=== PATIENT | male | born 1935 | race Caucasian/White ===

== ENCOUNTER 2018-06-20 21:56 | Emergency (ER) | payer OTHER, MEDICARE ==
[2018-06-20] MEDS ORDERED: DEXAMETHASONE SOD PHOS INJ 10 MG/1 ML VIAL IV ONE (22:52)
[2018-06-20] MEDS ORDERED: NORMAL SALINE 500 ML IV ONE (22:52)
--- NOTE | 2018-06-20 22:56 | ER Document Report ---
ED General - General Chief Complaint: Breathing Difficulty Stated Complaint: TROUBLE BREATING Time Seen by Provider: 06/20/18 22:45 Notes: Patient is a 82-year-old male who presents with complaint of sensation of throat swelling. Him and his are from [place]. He has had multiple radiation treatment on the left side of his neck due to a skin cancer. Says is been several months since last radiation treatment. He says he chronically has intermittent sensation of throat swelling and always try to clear his throat and hacking. Denies any recent fevers. He said tonight the swelling flexors get worse and he was having some trouble breathing. He therefore came to the ER. Now the symptoms are starting to improve. No fevers. No vomiting. No bloody mucus or bloody secretions. No other complaints at this time. - Related Data Allergies/Adverse Reactions: clindamycin Allergy (Verified 06/20/18 22:20) Past Medical History - Social History Smoking Status: Unknown if Ever Smoked Frequency of alcohol use: None Drug Abuse: None Family History: Reviewed & Not Pertinent Patient has suicidal ideation: No Patient has homicidal ideation: No - Past Medical History Cardiac Medical History: Reports: Hx Atrial Fibrillation, Hx Hypertension Renal/ Medical History: Denies: Hx Peritoneal Dialysis Musculoskeletal Medical History: Reports Hx Arthritis Review of Systems - Review of Systems Notes: My Normal Review Basic REVIEW OF SYSTEMS: CONSTITUTIONAL : Denies fever, chills, or sweats. Denies recent illness. EENT: Sensation of throat swelling RESPIRATORY: Tyler short of breath when throat was tight. GASTROINTESTINAL: Denies abdominal pain. Denies nausea, vomiting, or diarrhea. MUSCULOSKELETAL: Denies neck or back pain or joint pain or swelling. SKIN: Denies rash or skin lesions. NEUROLOGICAL: Denies altered mental status or loss of consciousness. Denies headache. Denies weakness or paralysis or loss of use of either side. Denies problems with gait or speech. Denies sensory or motor loss. ALL OTHER SYSTEMS REVIEWED AND NEGATIVE. Physical Exam - Vital signs Vitals: Temp Pulse Resp BP Pulse Ox 98.6 F 70 18 153/102 H 97 06/20/18 21:59 06/20/18 21:59 06/20/18 21:59 06/20/18 21:59 06/20/18 21:59 - Notes Notes: General Appearance: Well nourished, alert, cooperative, no acute distress, no obvious discomfort. Appearing. Vitals: reviewed, See vital signs table. Head: no swelling or tenderness to the head Eyes: PERRL, EOMI, Conjuctiva clear Mouth: No decreasd moisture Throat: No tonsillar inflammation, No airway obstruction, No lymphadenopathy Neck: Supple, no neck tenderness, obvious neck swelling. No stridor. No difficulty breathing on exam. Lungs: No wheezing, No rales, No rhonci, No accessory muscle use, good air exchange bilaterally. Heart: Normal rate, Regular rythm, No murmur, no rub Skin: warm, dry, appropriate color, no rash Neuro: speech clear, oriented x 3, normal affect, responds appropriately to questions. Course - Re-evaluation Re-evalutation: 06/21/18 07:[address] scan was normal. He does not have any throat swelling on exam. His symptoms resolved shortly after he got to the ER. They gave him a dose of Decadron. He looks well. At this time I feel he safe to be discharged home. He never had any stridor or difficulty breathing while here in the ER. He is handling his secretions without difficulty. Urgent return to ER immediately if he has recurrent sensation of throat swelling, fevers, difficulty breathing, difficulty swallowing, or if he feels unwell. Patient agrees with plan and will be discharged home. Dictation of this chart was performed using voice recognition software; therefore, there may be some unintended grammatical errors. - Vital Signs Vital signs: Temp Pulse Resp BP Pulse Ox 98.6 F 70 20 142/92 H 96 06/21/18 03:01 06/20/18 21:59 06/21/18 03:01 06/21/18 03:01 06/21/18 03:01 - Laboratory Result Diagrams: 06/20/18 22:57 06/20/18 22:57 Laboratory results interpreted by me: 06/20/18 06/20/18 06/20/18 22:34 22:57 22:57 RBC 4.27 L RDW 15.3 H Lymphocytes % 10.9 L BUN 22 H Ur Leukocyte Esterase TRACE H Discharge - Discharge Clinical Impression: Throat pain Condition: Good Disposition: HOME, SELF-CARE Additional Instructions: Your CT scan showed not complications in regards to your throat. Your blood work did not show any concerning findings. Please eat soft foods over the next 48 hours. please have a low threshold to return to the ER if you have difficulty breathing, fevers, or feel as if your throat is swelling.
[2018-06-20 23:10] LABS: ABSOLUTE EOSINOPHILS # (AUTO) 0.1 10^3/uL (0.0-0.6); ABSOLUTE LYMPHOCYTES (AUTO) 0.6 10^3/uL (0.5-4.7); ABSOLUTE MONOCYTES (AUTO) 0.5 10^3/uL (0.1-1.4); BASOPHILS % (AUTO) 0.7 % (0-2); HEMATOCRIT 41.3 % (37.9-51.0); HEMOGLOBIN 14.2 g/dL (13.5-17.0); LYMPHOCYTES % (AUTO) 10.9 % (13-45); MEAN CORPUSCULAR HEMOGLOBIN 33.2 pg (27.0-33.4); MEAN CORPUSCULAR HGB CONC 34.3 g/dL (32.0-36.0); MEAN CORPUSCULAR VOLUME 97 fl (80-97); MONOCYTES % (AUTO) 10.4 % (3-13); PLATELET COUNT 163 10^3/uL (150-450); RED BLOOD COUNT 4.27 10^6/uL (4.35-5.55); RED CELL DISTRIBUTION WIDTH 15.3 % (11.5-14.0); TOTAL CELLS COUNTED % (AUTO) 100 %; WHITE BLOOD COUNT 5.2 10^3/uL (4.0-10.5)
[2018-06-20 23:28] LABS: ANION GAP 9 (5-19); BLOOD UREA NITROGEN 22 mg/dL (7-20); CALCIUM 9.8 mg/dL (8.4-10.2); CARBON DIOXIDE 28 mmol/L (22-30); CHLORIDE 101 mmol/L (98-107); GLUCOSE 100 mg/dL (75-110); POTASSIUM 4.6 mmol/L (3.6-5.0); SODIUM 137.9 mmol/L (137-145)
--- NOTE | 2018-06-21 01:11 | RADIOLOGY REPORT (SQ) ---
EXAM DESCRIPTION: CT NECK CHEST WITH IV CONTRAST COMPLETED DATE/TME: 06/20/2018 22:52 CLINICAL HISTORY: 82 years Male, sensation of throat swelling Comparison: None. Technique: IV contrast. Coronal and sagittal reformat. This exam was performed according to our departmental dose-optimization program, which includes automated exposure control, adjustment of the mA and/or kV according to patient size and/or use of iterative reconstruction technique. [facility]: Dose Right [facility]: CareDose [facility]: Dose Right [facility]: Teradose 4D [facility]: Ryzing LIMITATIONS: None Findings: Orbits, paranasal sinuses, and skull base: Normal. Nasopharynx: Normal. Suprahyoid neck: Normal oropharynx, oral cavity, parapharyngeal space, and retropharyngeal space. Infrahyoid neck: Normal larynx, hypopharynx, and supraglottis. Thyroid: Normal. Thoracic inlet: Normal lung apices and brachial plexus. Lymph nodes: Normal. No lymphadenopathy. Vascular structures: 3.9 cm diameter of the pulmonary outflow tract suggestive of pulmonary arterial hypertension. Other findings: Anterior C3-C5 hardware fusion. Bone demineralization. Moderate disc desiccation of the mid and lower cervical spine. Moderate irregular disc bulge/osteophyte complex at C3-C4 with mild/moderate spinal canal stenosis and moderate bilateral C4 foraminal stenoses. Impression: 1. Dilated pulmonary outflow track suggestive of pulmonary arterial hypertension. 2. No acute CT findings of the neck.
[2018-06-21 02:06] LABS: APPEARANCE,URINE CLEAR; BILIRUBIN,URINE NEGATIVE (NEGATIVE); COLOR,URINE COLORLESS; GLUCOSE, URINE NEGATIVE (NEGATIVE); KETONES,URINE NEGATIVE (NEGATIVE); LEUKOCYTE ESTERASE,URINE TRACE (NEGATIVE); NITRITE,URINE NEGATIVE (NEGATIVE); PROTEIN,URINE NEGATIVE (NEGATIVE); URINE SPECIFIC GRAVITY 1.006; UROBILINOGEN,URINE NEGATIVE mg/dL (<2.0)
[2018-06-21 03:17] VITALS: BP 142/92
== END 2018-06-21 03:17 | disposition home or self-care (01) ==
LOC: ER 21:56
DX: R07.0 Pain in throat (principal); R06.00 Dyspnea, unspecified; I48.91 Unspecified atrial fibrillation; I10 Essential (primary) hypertension; Z88.3 Allergy status to other anti-infective agents; Z85.828 Personal history of other malignant neoplasm of skin
CPT/HCPCS: 99283; 96361; 96374; 36415; 85025; 80048; 81001; 70491; J7040; J1100

== ENCOUNTER 2018-10-03 20:18 | Inpatient (IN) | payer MEDICARE, OTHER ==
[2018-10-03 20:52] LABS: VENOUS BLOOD BASE EXCESS -0.3 mmol/L; VENOUS BLOOD HCO3 22.8 mmol/L (20-32); VENOUS BLOOD PCO2 32.9 mmHg (35-63); VENOUS BLOOD PH 7.46 (7.30-7.42)
[2018-10-03 20:56] LABS: HEMATOCRIT 42.9 % (37.9-51.0); HEMOGLOBIN 14.3 g/dL (13.5-17.0); MEAN CORPUSCULAR HEMOGLOBIN 31.9 pg (27.0-33.4); MEAN CORPUSCULAR HGB CONC 33.4 g/dL (32.0-36.0); MEAN CORPUSCULAR VOLUME 96 fl (80-97); PLATELET COUNT 153 10^3/uL (150-450); RED BLOOD COUNT 4.49 10^6/uL (4.35-5.55); RED CELL DISTRIBUTION WIDTH 14.1 % (11.5-14.0); WHITE BLOOD COUNT 10.1 10^3/uL (4.0-10.5)
[2018-10-03 20:58] LABS: INTERNATIONAL RATION (INR) 2.74; PROTHROMBIN TIME 29.6 SEC (11.4-15.4)
[2018-10-03 21:11] LABS: ALANINE AMINOTRANSFERASE 32 U/L (21-72); ALBUMIN 4.5 g/dL (3.5-5.0); ALKALINE PHOSPHATASE 73 U/L (38-126); ANION GAP 11 (5-19); ASPARTATE AMINO TRANSFERASE 33 U/L (17-59); BILIRUBIN,DIRECT 0.3 mg/dL (0.0-0.4); BILIRUBIN,TOTAL 0.9 mg/dL (0.2-1.3); BLOOD UREA NITROGEN 24 mg/dL (7-20); CALCIUM 9.6 mg/dL (8.4-10.2); CARBON DIOXIDE 25 mmol/L (22-30); CHLORIDE 101 mmol/L (98-107); GLUCOSE 127 mg/dL (75-110); POTASSIUM 4.8 mmol/L (3.6-5.0); SODIUM 136.7 mmol/L (137-145); TOTAL PROTEIN 7.3 g/dL (6.3-8.2)
--- NOTE | 2018-10-03 21:17 | ER Document Report ---
ED Fever - General Chief Complaint: Fever Stated Complaint: FEVER Time Seen by Provider: 10/03/18 21:04 Notes: Patient is an 82-year-old male that comes to the emergency department for chief complaint of fever and weakness. Symptoms started this evening, he came by EMS, was found to have an initial temperature of 102.7 orally. Family states they noticed him shaking with chills, then he started getting weak and could not stand up. They also saw some blood in his urine when he urinated his evening. He did not get confused. He has not vomited, he denies shortness of breath, he denies any pain including abdominal pain, flank pain, headache, chest pain. Past medical history includes hypertension, hyperlipidemia, BPH, A. fib on Coumadin, hypothyroidism. He is visiting from [place]. TRAVEL OUTSIDE OF THE [place] IN LAST 30 DAYS: No - Related Data Allergies/Adverse Reactions: clindamycin Allergy (Verified 06/20/18 22:20) Past Medical History - General Information source: Patient, Relative - Social History Smoking Status: Never Smoker Frequency of alcohol use: None Drug Abuse: None Lives with: Family Family History: Reviewed & Not Pertinent - Past Medical History Cardiac Medical History: Reports: Hx Atrial Fibrillation, Hx Hypertension Renal/ Medical History: Denies: Hx Peritoneal Dialysis Musculoskeletal Medical History: Reports Hx Arthritis - Immunizations Hx Diphtheria, Pertussis, Tetanus Vaccination: Yes Review of Systems - Review of Systems Constitutional: See HPI EENT: No symptoms reported Cardiovascular: No symptoms reported Respiratory: No symptoms reported Gastrointestinal: No symptoms reported Genitourinary: See HPI Male Genitourinary: No symptoms reported Musculoskeletal: No symptoms reported Skin: No symptoms reported Hematologic/Lymphatic: No symptoms reported Neurological/Psychological: No symptoms reported Physical Exam - Vital signs Vitals: Resp Pulse Ox 13 94 10/03/18 20:27 10/03/18 20:27 - Notes Notes: GENERAL: Flushed and slightly ill appearing, however he is alert, conversational, not in distress HEAD: Normocephalic, atraumatic. EYES: Pupils equal, round, and reactive to light. Extraocular movements intact. ENT: Oral mucosa moist, tongue midline. Oropharynx unremarkable. Airway patent. Nares patent, no nasal septal hematoma, TM's intact. NECK: Full range of motion. Supple. Trachea midline. LUNGS: Clear to auscultation bilaterally, no wheezes, rales, or rhonchi. No respiratory distress. HEART: Regular rate and rhythm. 1/6 murmur heard throughout, systolic ABDOMEN: Soft, non-tender. Non-distended. Bowel sounds present in all 4 quad rants. GENITOURINARY: No tenderness, swelling, or concerning findings noted EXTREMITIES: Moves all 4 extremities spontaneously. No edema, normal radial and dorsalis pedis pulses bilaterally. No cyanosis. BACK: no cervical, thoracic, lumbar midline tenderness. No saddle anesthesia, normal distal neurovascular exam. Moves all extremities in full range of motion. NEUROLOGICAL: Alert and oriented x3. Normal speech. Cranial nerves II through XII grossly intact. PSYCH: Normal affect, normal mood. SKIN: Flushed Course - Re-evaluation Re-evalutation: Patient had a fever of 102.7. He is not hypotensive or tachycardic. He is slightly ill-appearing but not toxic. He is very weak. CBC shows no leukocytosis but does show bandemia at 6%. Chemistry generally unremarkable. Lactic acid is not elevated. Urine does show infection, culture placed. Placing on Rocephin. Chest x-ray is unremarkable. Discussed with family, because of his illness, urinary tract infection, bandemia, fever, age, and weakness, I recommended admission to the hospital. They are very agreeable with this. Discussed with Dr. Martines, hospitalist, he will admit the patient to medical floor full admission. - Vital Signs Vital signs: Temp Pulse Resp BP Pulse Ox 99.7 F 19 144/88 H 98 10/03/18 22:00 10/03/18 23:01 10/03/18 23:01 10/03/18 23:01 - Laboratory Result Diagrams: 10/03/18 20:30 10/03/18 20:30 Laboratory results interpreted by me: 10/03/18 10/03/18 10/03/18 20:30 20:30 20:30 RDW 14.1 H Seg Neuts % (Manual) 86 H Band Neutrophils % 6 H Lymphocytes % (Manual) 3 L Abs Neuts (Manual) 9.3 H Abs Lymphs (Manual) 0.3 L PT 29.6 H VBG pH VBG pCO2 Sodium 136.7 L BUN 24 H Glucose 127 H Urine Protein Urine Blood Urine Nitrite Ur Leukocyte Esterase 10/03/18 10/03/18 20:39 21:21 RDW Seg Neuts % (Manual) Band Neutrophils % Lymphocytes % (Manual) Abs Neuts (Manual) Abs Lymphs (Manual) PT VBG pH 7.46 H VBG pCO2 32.9 L Sodium BUN Glucose Urine Protein 30 H Urine Blood LARGE H Urine Nitrite POSITIVE H Ur Leukocyte Esterase SMALL H Discharge - Discharge Clinical Impression: Bandemia, Weakness Urinary tract infection Qualifiers: Urinary tract infection type: site unspecified Hematuria presence: with h ematuria Qualified Code(s): N39.0 - Urinary tract infection, site not specified Fever Qualifiers: Fever type: unspecified Qualified Code(s): R50.9 - Fever, unspecified Condition: Stable Disposition: ADMITTED INPATIENT Admitting Provider: Bbobi (Hospitalist) Unit Admitted: Medical Floor
--- NOTE | 2018-10-03 21:26 | EKG REPORT ---
SEVERITY:- ABNORMAL ECG - ATRIAL FLUTTER, A-RATE 223 BORDERLINE PROLONGED QT INTERVAL : Confirmed by: Kerry Lim MD 03-Oct-2018 21:25:29
[2018-10-03 21:36] LABS: ABSOLUTE LYMPHOCYTES# (MANUAL) 0.3 10^3/uL (0.5-4.7); ABSOLUTE MONOCYTES # (MANUAL) 0.5 10^3/uL (0.1-1.4); BAND NEUTROPHILS % (MANUAL) 6 % (3-5); BASOPHILS % (MANUAL) 0 % (0-2); EOSINOPHILS % (MANUAL) 0 % (0-6); LYMPHOCYTES % (MANUAL) 3 % (13-45); MONOCYTES % (MANUAL) 5 % (3-13); RBC MORPHOLOGY COMMENT NORMO-CYTIC/CHROMIC; SEGMENTED NEUTROPHILS % (MAN) 86 % (42-78); TOTAL CELLS COUNTED 100
[2018-10-03 21:37] LABS: PLATELET COMMENT ADEQUATE
[2018-10-03] MEDS ORDERED: CEFTRIAXONE 1 GM/D5W RTU 1 GM/50 ML RTUPB IV ONE (21:49)
[2018-10-03 21:52] LABS: APPEARANCE,URINE CLOUDY; BILIRUBIN,URINE NEGATIVE (NEGATIVE); COLOR,URINE YELLOW; GLUCOSE, URINE NEGATIVE (NEGATIVE); KETONES,URINE NEGATIVE (NEGATIVE); LEUKOCYTE ESTERASE,URINE SMALL (NEGATIVE); NITRITE,URINE POSITIVE (NEGATIVE); PROTEIN,URINE 30 mg/dL (NEGATIVE); URINE SPECIFIC GRAVITY 1.017; UROBILINOGEN,URINE NEGATIVE mg/dL (<2.0)
--- NOTE | 2018-10-03 22:13 | RADIOLOGY REPORT (SQ) ---
EXAM DESCRIPTION: XR CHEST 1 VIEW COMPLETED DATE/TME: 10/03/2018 21:14 CLINICAL HISTORY: 82 years, Male, fever COMPARISON: None. NUMBER OF VIEWS: 2 TECHNIQUE: AP chest LIMITATIONS: None. FINDINGS: The heart size is normal. Atheromatous change thoracic aorta. Osteopenia. Post surgical change cervical spine. Lungs are hyperinflated but clear. No pneumothorax IMPRESSION: Underlying hyperinflation. Lungs are clear copyright 2010 [employer]- All Rights Reserved
[2018-10-03] MEDS ORDERED: ONDANSETRON HCL INJ/PF 4 MG/2 ML SDV IV PRN (23:05)
[2018-10-03] MEDS ORDERED: TEMAZEPAM 7.5 MG CAPSULE PO PRN (23:05)
[2018-10-03] MEDS ORDERED: MAGNESIUM HYDROXIDE SUSP 30 ML UDCUP PO PRN (23:05)
[2018-10-03] MEDS ORDERED: MAG HYDROX/AL HYDROX/SIMETH SUSP 30 ML UDCUP PO PRN (23:05)
[2018-10-03] MEDS ORDERED: ACETAMINOPHEN 650 MG SUPP.RECT PR PRN (23:10)
[2018-10-03] MEDS ORDERED: HYDRALAZINE HCL INJ/PF 20 MG/1 ML SDV IV PRN (23:10)
[2018-10-03] MEDS ORDERED: MORPHINE SULFATE 10 MG/ML INJ IV PRN ×4 (23:10→23:18)
[2018-10-03] MEDS ORDERED: ACETAMINOPHEN 325 MG TABLET PO PRN (23:10)
--- NOTE | 2018-10-04 00:22 | PDOC H&P ---
History of Present Illness Admission Date/PCP: 10/03/2018 22:29 No local physician Patient complains of: Fever History of Present Illness: GABY MUJICA is a 82 year old male who presented to the emergency room via EMS with acute febrile symptoms. He and his family admit that he suddenly developed a subjective fever with severe shaking chills and severe generalized muscle weakness this evening just prior to coming to the hospital. He was seated at home and developed his severe chilling, when he tried to get up and was unable to stand on his own. He was eventually assisted to the bathroom where he passed some blood tinged urine. He denies any additional associated or accompanying signs and symptoms. He admits prior similar episodes with urinary tract infections related to his enlarged prostate. He has not identified any aggravating or ameliorating factors for his acute fever. Patient was given acetaminophen by EMS and brought to the emergency room where his initial tem perature was 102.7 F. He was found to have a normal white blood count however his urine showed evidence of significant pyuria with positive nitrite. Patient was subsequently admitted to hospital for further evaluation and treatment. Past Medical History Cardiac Medical History: Reports: Atrial Fibrillation, Hyperlipidema, Hypertension Pulmonary Medical History: Denies: Asthma, Chronic Obstructive Pulmonary Disease (COPD) EENT Medical History: Reports: Ears - Hearing aids Denies: Cataracts Neurological Medical History: Denies: Hemorrhagic CVA, Ischemic CVA, Multiple Sclerosis, Seizures Endocrine Medical History: Reports: Hypothyroidism Denies: Diabetes Mellitus Type 1, Diabetes Mellitus Type 2, Hyperthyroidism Renal/ Medical History: Reports: Other - Benign prostatic hypertrophy, frequent urinary tract infections Denies: Chronic Kidney Disease, Nephrolithiasis Malignancy Medical History: Reports: None GI Medical History: Reports: Gastroesophageal Reflux Disease - Acid Reflux Denies: Cirrhosis, Hepatitis Musculoskeltal Medical History: Reports: Arthritis - Cervical spine Denies: Gout Skin Medical History: Denies: Eczema, Psoriasis Psychiatric Medical History: Denies: Alcohol Dependency, Substance Abuse, Tobacco Dependency Traumatic Medical History: Reports: None Hematology: Denies: Anemia, Bleeding Tendencies Infectious Medical History: Reports: None Past Surgical History Past Surgical History: Reports: Orthopedic Surgery - Cervical spinal fusion surgery Social History Information Source: Patient Lives with: Family Smoking Status: Never Smoker Frequency of Alcohol Use: Rare Hx Recreational Drug Use: No Drugs: None Hx Prescription Drug Abuse: No - Advance Directive Resuscitation Status: Full Code Surrogate healthcare decision maker:: Gildardo Mujica Family History Family History: Patient was orphaned and is unable to provide any family history. Parental Family History Reviewed: No - Patient was orphaned Children Family History Reviewed: No Sibling(s) Family History Reviewed.: No Medication/Allergy Allergies/Adverse Reactions: clindamycin Allergy (Verified 06/20/18 22:20) Review of Systems Constitutional: PRESENT: as per HPI, chills, fever(s), weakness Eyes: ABSENT: visual disturbances, other - Eye pain Ears: PRESENT: hearing changes - Decrease in hearing in left ear due to ear infection., other - Ear discomfort and drainage secondary to ear infection persisting after use of antibiotics with the last dose being 6 days ago. Nose, Mouth, and Throat: ABSENT: mouth pain, sore throat Cardiovascular: ABSENT: chest pain, palpitations Respiratory: ABSENT: cough, dyspnea Gastrointestinal: ABSENT: abdominal pain, constipation, diarrhea, nausea, vomiting Genitourinary: PRESENT: as per HPI, hematuria. ABSENT: dysuria Musculoskeletal: PRESENT: as per HPI, muscle weakness. ABSENT: back pain, joint swelling Integumentary: ABSENT: pruritus, rash Neurological: ABSENT: confusion, convulsions, focal weakness, memory loss, syncope Psychiatric: ABSENT: anxiety, depression Endocrine: ABSENT: cold intolerance, heat intolerance Hematologic/Lymphatic: ABSENT: easy bleeding, easy bruising Physical Exam Vital Signs: Temp Pulse Resp BP Pulse Ox 99.7 F 21 H 134/76 H 98 10/03/18 22:00 10/03/18 22:00 10/03/18 22:00 10/03/18 22:00 Intake & Output 10/01/18 10/02/18 10/03/18 23:59 23:59 23:59 Intake Total 50 Balance 50 General appearance: PRESENT: no acute distress, cooperative, hard of hearing Head exam: PRESENT: atraumatic, normocephalic Eye exam: PRESENT: conjunctiva pink. ABSENT: conjunctival injection, scleral icterus Ear exam: PRESENT: drainage - Purulent exudate in the left ear canal., normal external ear exam. ABSENT: bleeding, TM's normal bilaterally - Left tympanic membrane is perforated with purulent exudate streaming into the external auditory canal. Mouth exam: PRESENT: dry mucosa, tongue midline Neck exam: ABSENT: full ROM - Decreased range of motion of cervical spine due to cervical fusion surgery., JVD, thyromegaly, tracheal deviation Respiratory exam: PRESENT: clear to auscultation darvin, symmetrical, unlabored Cardiovascular exam: PRESENT: irregular rhythm - Irregularly irregular rate and rhythm. ABSENT: clicks, gallop, rubs Pulses: PRESENT: normal radial pulses, normal dorsalis pedis pul Vascular exam: PRESENT: normal capillary refill. ABSENT: pallor GI/Abdominal exam: PRESENT: normal bowel sounds, soft. ABSENT: tenderness Rectal exam: PRESENT: deferred Extremities exam: ABSENT: joint swelling, pedal edema Musculoskeletal exam: ABSENT: deformity, dislocation Neurological exam: PRESENT: alert, oriented to person, oriented to place, orien marci to time, oriented to situation, CN II-XII grossly intact. ABSENT: motor sensory deficit Psychiatric exam: PRESENT: appropriate affect, normal mood Skin exam: PRESENT: dry, intact, warm. ABSENT: jaundice, rash, urticaria Results Laboratory Results: 10/03/18 20:30 10/03/18 20:30 10/03/18 10/03/18 10/03/18 20:30 20:30 20:30 WBC 10.1 RBC 4.49 Hgb 14.3 Hct 42.9 MCV 96 MCH 31.9 MCHC 33.4 RDW 14.1 H Plt Count 153 Seg Neutrophils % Not Reportable Lymphocytes % Not Reportable Monocytes % Not Reportable Eosinophils % Not Reportable Basophils % Not Reportable Absolute Neutrophils Not Reportable Absolute Lymphocytes Not Reportable Absolute Monocytes Not Reportable Absolute Eosinophils Not Reportable Absolute Basophils Not Reportable VBG pH VBG pCO2 VBG HCO3 VBG Base Excess Sodium 136.7 L Potassium 4.8 Chloride 101 Carbon Dioxide 25 Anion Gap 11 BUN 24 H Creatinine 0.92 Est GFR ( Amer) > 60 Est GFR (Non-Af Amer) > 60 Glucose 127 H Lactic Acid 1.6 Calcium 9.6 Total Bilirubin 0.9 AST 33 ALT 32 Alkaline Phosphatase 73 Total Protein 7.3 Albumin 4.5 Urine Color Urine Appearance Urine pH Ur Specific [place] Urine Protein Urine Glucose (UA) Urine Ketones Urine Blood Urine Nitrite Ur Leukocyte Esterase Urine WBC (Auto) Urine RBC (Auto) 10/03/18 10/03/18 20:39 21:21 WBC RBC Hgb Hct MCV MCH MCHC RDW Plt Count Seg Neutrophils % Lymphocytes % Monocytes % Eosinophils % Basophils % Absolute Neutrophils Absolute Lymphocytes Absolute Monocytes Absolute Eosinophils Absolute Basophils VBG pH 7.46 H VBG pCO2 32.9 L VBG HCO3 22.8 VBG Base Excess -0.3 Sodium Potassium Chloride Carbon Dioxide Anion Gap BUN Creatinine Est GFR ( Amer) Est GFR (Non-Af Amer) Glucose Lactic Acid Calcium Total Bilirubin AST ALT Alkaline Phosphatase Total Protein Albumin Urine Color YELLOW Urine Appearance CLOUDY Urine pH 6.0 Ur Specific [place] 1.017 Urine Protein 30 H Urine Glucose (UA) NEGATIVE Urine Ketones NEGATIVE Urine Blood LARGE H Urine Nitrite POSITIVE H Ur Leukocyte Esterase SMALL H Urine WBC (Auto) 99 Urine RBC (Auto) >182 Impressions: Chest X-Ray 10/03/18 21:14 IMPRESSION: Underlying hyperinflation. Lungs are clear copyright 2011 [employer]- All Rights Reserved Assessment and Plan - Diagnosis (1) Urinary tract infection Qualifiers: Urinary tract infection type: site unspecified Hematuria presence: with hematuria Qualified Code(s): N39.0 - Urinary tract infection, site not specified; R31.9 - Hematuria, unspecified Is this a current diagnosis for this admission?: Yes Plan: Patient is noted to have nitrite positive urine and will thus was treated with Rocephin 1 g IV in the ER. Urine cultures and blood cultures are pending. Patient was recently treated with oral antibiotics (unknown name of an antibiotic medication taken once daily) without significant improvement. Patient will be treated with the same antibiotics as he is to treat his urinary tract infection during his hospital course although recent antibiotic therapy of a probable cephalosporin, given his taking warfarin and not being instructed that the antibiotic may alter his INR, by his primary care provider. The patient's initial treatment with Rocephin will be abandoned and he will be started on meropenem 1 g IV every 8 hours pending urine culture results.. Patient's CBC will be followed on a regular basis as well his metabolic profile and magnesium level. Urology and/or infectious disease consultation will be obtained as needed. The patient will use morphine sulfate 2 to 4 mg IV every 2 hours on a as needed basis via sliding scale for pain. (2) Fever Qualifiers: Fever type: unspecified Qualified Code(s): R50.9 - Fever, unspecified Is this a current diagnosis for this admission?: Yes Plan: Patient's fever be treated with acetaminophen as required. His vital signs were monitored closely throughout his hospital course. (3) BPH loc w urin obs/LUTS Is this a current diagnosis for this admission?: Yes Plan: Patient will be continued on his current therapy for benign prostatic hypertrophy. Additional therapy will be considered as required. Urinary output will be monitored on a regular basis throughout his hospital course. (4) Chronic atrial fibrillation Is this a current diagnosis for this admission?: Yes Plan: Patient be continued on his usual medications for atrial fibrillation and his INR will be followed on a regular basis to monitor his warfarin therapy. Adjustment to the patient's warfarin dosage will be made as necessary to maintain appropriate anticoagulation status. (5) HTN (hypertension) Qualifiers: Hypertension type: essential hypertension Qualified Code(s): I10 - Essential (primary) hypertension Is this a current diagnosis for this admission?: Yes Plan: Patient be continued on his usual antihypertensive regiment as appropriate throughout his hospital course and at the time of discharge. (6) HLD (hyperlipidemia) Qualifiers: Hyperlipidemia type: unspecified Qualified Code(s): E78.5 - Hyperlipidemia, unspecified Is this a current diagnosis for this admission?: Yes Plan: Patient will continued on his usual hyperlipidemia therapy throughout his hospitalization and upon discharge as appropriate. A lipid profile will be obtained to assess the efficacy of current therapy. (7) Hypothyroidism Qualifiers: Hypothyroidism type: unspecified Qualified Code(s): E03.9 - Hypothyroidism, unspecified Is this a current diagnosis for this admission?: Yes Plan: Patient's current thyroid replacement hormone will be continued during his hospital course. A thyroid profile will be obtained to evaluate the efficacy of his current therapy. (8) Perforation of tympanic membrane of left ear due to otitis media Is this a current diagnosis for this admission?: Yes Plan: Patient was recently treated with oral antibiotics (unknown name of an antibiotic medication taken once daily) without significant improvement. Patient will be treated with the same antibiotics as he is to treat his urinary tract infection during his hospital course although recent antibiotic therapy of a probable cephalosporin, given his taking warfarin and not being instructed that the antibiotic may alter his INR, by his primary care provider. The patient's initial treatment with Rocephin will be abandoned and he will be started on meropenem 1 g IV every 8 hours pending urine culture results. Additionally the patient will be treated with Cortisporin otic suspension 4 drops to the left ear 4 times daily x10 days. - Time Time Spent with patient: 25-34 minutes Medications reviewed and adjusted accordingly: Yes Anticipated discharge: Home - Inpatient Certification Based on my medical assessment, after consideration of the patient's comorbidities, presenting symptoms, or acuity I expect that the services needed warrant INPATIENT care.: Yes I certify that my determination is in accordance with my understanding of Medicare's requirements for reasonable and necessary INPATIENT services [42 CFR 412.3e].: Yes Medical Necessity: Significant Comorbidiites Make Outpatient Treatment Too Risky, Need Close Monitoring Due to Risk of Patient Decompensation, Need for IV Antibiotics, Risk of Complication if Not Cared For in Hospital
--- NOTE | 2018-10-04 00:23 | ADVANCED CARE ---
- Diagnosis (1) Urinary tract infection Diagnosis Current: Yes (2) Fever Diagnosis Current: Yes (3) BPH loc w urin obs/LUTS Diagnosis Current: Yes (4) Chronic atrial fibrillation Diagnosis Current: Yes (5) HTN (hypertension) Diagnosis Current: Yes (6) HLD (hyperlipidemia) Diagnosis Current: Yes Attendance: The patient and myself Resuscitation Status: Full Code Discussion: After brief discussion with patient is determined that he wishes to be full code for resuscitation status throughout his hospital course at this time. Additionally he wishes to name Lolita Hastings, his , as his designated surrogate medical decision maker. Care Planning Goals: 1. Patient's resuscitation status will be full CODE STATUS throughout his hospitalization. 2. Lolita Hastings is the patient's designated surrogate medical decision-maker. Document(s) Completed: The following entries will be made into the patient's permanent medical record as well as his current medical record and orders via EMR entry: 1. Patient's resuscitation status will be full CODE STATUS throughout his hospitalization. 2. Lolita Hastings is the patient's designated surrogate medical decision-maker. Time Spent: 8 minutes
[2018-10-04] MEDS ORDERED: MEROPENEM 1 GM VIAL IV PRN (00:24)
[2018-10-04] MEDS: RINGERS SOLUTION,LACTATED 1,000 ML IV PRN ×2 (00:33→17:46)
[2018-10-04] MEDS ORDERED: MEROPENEM 1 GM VIAL ONE (02:32)
[2018-10-04] MEDS: MEROPENEM 1 GM in NORMAL SALINE 50 ML IV SCH ×2 (03:41→10:44)
[2018-10-04] MEDS: PANTOPRAZOLE SODIUM 40 MG TABLET.DR PO SCH ×2 (05:32→17:47)
[2018-10-04 07:14] LABS: HEMATOCRIT 39.7 % (37.9-51.0); HEMOGLOBIN 13.3 g/dL (13.5-17.0); MEAN CORPUSCULAR HEMOGLOBIN 31.7 pg (27.0-33.4); MEAN CORPUSCULAR HGB CONC 33.4 g/dL (32.0-36.0); MEAN CORPUSCULAR VOLUME 95 fl (80-97); PLATELET COUNT 126 10^3/uL (150-450); RED BLOOD COUNT 4.19 10^6/uL (4.35-5.55); RED CELL DISTRIBUTION WIDTH 13.9 % (11.5-14.0); WHITE BLOOD COUNT 11.3 10^3/uL (4.0-10.5)
[2018-10-04 07:17] LABS: INTERNATIONAL RATION (INR) 2.43; PROTHROMBIN TIME 26.8 SEC (11.4-15.4)
[2018-10-04 07:42] LABS: ANION GAP 8 (5-19); BLOOD UREA NITROGEN 22 mg/dL (7-20); CALCIUM 8.7 mg/dL (8.4-10.2); CARBON DIOXIDE 26 mmol/L (22-30); CHLORIDE 103 mmol/L (98-107); GLUCOSE 102 mg/dL (75-110); SODIUM 136.9 mmol/L (137-145); TRIGLYCERIDES 107 mg/dL (<150)
[2018-10-04 07:53] LABS: DIRECT LDL 42 mg/dL (<100)
[2018-10-04 07:58] LABS: FREE T3 3.25 pg/mL (2.77-5.27); FREE T4 (FREE THYROXINE) 1.33 ng/dL (0.78-2.19)
[2018-10-04 08:12] LABS: THYROID STIMULATING HORMONE 0.07 uIU/mL (0.47-4.68)
[2018-10-04 08:16] LABS: POTASSIUM 3.6 mmol/L (3.6-5.0)
[2018-10-04] MEDS: DOCUSATE SODIUM 100 MG CAPSULE PO SCH ×2 (09:58→17:47)
[2018-10-04] MEDS: NEOMY SULF/POLYMYX B SULF/HC OTIC SUSP 10 ML AS SCH ×4 (10:44→22:11)
--- NOTE | 2018-10-04 14:07 | PDOC PROGRESS REPORT ---
Subjective Progress Note for:: 10/04/18 Subjective:: This is 82 years old male patient with past medical history of atrial fibrillation on Coumadin for anticoagulation, hyperlipidemia, hypertension, hypothyroidism presented with chief complaint of shaking chills fever and dysuria. Patient was given acetaminophen by EMS and brought to the emergency room where his initial temperature was 102.7. His urine analysis is compatible with UTI. His urine culture is positive for gram-negative rods. Patient has be en started on meropenem by the attending physician concession manager. I switched to meropenem to ceftriaxone. Reason For Visit: ACUTE URINARY TRACT INFECTION Physical Exam Vital Signs: Temp Pulse Resp BP Pulse Ox 99.7 F 19 144/88 H 98 10/03/18 22:00 10/03/18 23:01 10/03/18 23:01 10/03/18 23:01 Intake & Output 10/03/18 10/04/18 10/05/18 06:59 06:59 06:59 Intake Total 50 Output Total 450 Balance -400 Weight 70.2 kg General appearance: PRESENT: no acute distress Head exam: PRESENT: atraumatic Eye exam: PRESENT: conjunctiva pink Neck exam: ABSENT: carotid bruit, JVD, lymphadenopathy, thyromegaly Respiratory exam: PRESENT: clear to auscultation darvin. ABSENT: rales, rhonchi, wheezes Cardiovascular exam: PRESENT: irregular rhythm. ABSENT: diastolic murmur, rubs, systolic murmur GI/Abdominal exam: PRESENT: normal bowel sounds, soft. ABSENT: distended, guarding, mass, organolmegaly, rebound, tenderness Neurological exam: PRESENT: alert, awake, oriented to person, oriented to place, oriented to time, oriented to situation Results Laboratory Results: 10/04/18 06:37 10/04/18 06:37 10/03/18 10/03/18 10/03/18 20:30 20:30 20:30 WBC 10.1 RBC 4.49 Hgb 14.3 Hct 42.9 MCV 96 MCH 31.9 MCHC 33.4 RDW 14.1 H Plt Count 153 Seg Neutrophils % Not Reportable Lymphocytes % Not Reportable Monocytes % Not Reportable Eosinophils % Not Reportable Basophils % Not Reportable Absolute Neutrophils Not Reportable Absolute Lymphocytes Not Reportable Absolute Monocytes Not Reportable Absolute Eosinophils Not Reportable Absolute Basophils Not Reportable VBG pH VBG pCO2 VBG HCO3 VBG Base Excess Sodium 136.7 L Potassium 4.8 Chloride 101 Carbon Dioxide 25 Anion Gap 11 BUN 24 H Creatinine 0.92 Est GFR ( Amer) > 60 Est GFR (Non-Af Amer) > 60 Glucose 127 H Lactic Acid 1.6 Calcium 9.6 Magnesium Total Bilirubin 0.9 AST 33 ALT 32 Alkaline Phosphatase 73 Total Protein 7.3 Albumin 4.5 Triglycerides Cholesterol LDL Cholesterol Direct VLDL Cholesterol HDL Cholesterol TSH Free T4 Free T3 pg/mL Urine Color Urine Appearance Urine pH Ur Specific [place] Urine Protein Urine Glucose (UA) Urine Ketones Urine Blood Urine Nitrite Ur Leukocyte Esterase Urine WBC (Auto) Urine RBC (Auto) 10/03/18 10/03/18 10/04/18 20:39 21:21 06:37 WBC 11.3 H RBC 4.19 L Hgb 13.3 L Hct 39.7 MCV 95 MCH 31.7 MCHC 33.4 RDW 13.9 Plt Count 126 L Seg Neutrophils % Lymphocytes % Monocytes % Eosinophils % Basophils % Absolute Neutrophils Absolute Lymphocytes Absolute Monocytes Absolute Eosinophils Absolute Basophils VBG pH 7.46 H VBG pCO2 32.9 L VBG HCO3 22.8 VBG Base Excess -0.3 Sodium Potassium Chloride Carbon Dioxide Anion Gap BUN Creatinine Est GFR ( Amer) Est GFR (Non-Af Amer) Glucose Lactic Acid Calcium Magnesium Total Bilirubin AST ALT Alkaline Phosphatase Total Protein Albumin Triglycerides Cholesterol LDL Cholesterol Direct VLDL Cholesterol HDL Cholesterol TSH Free T4 Free T3 pg/mL Urine Color YELLOW Urine Appearance CLOUDY Urine pH 6.0 Ur Specific [place] 1.017 Urine Protein 30 H Urine Glucose (UA) NEGATIVE Urine Ketones NEGATIVE Urine Blood LARGE H Urine Nitrite POSITIVE H Ur Leukocyte Esterase SMALL H Urine WBC (Auto) 99 Urine RBC (Auto) >182 10/04/18 10/04/18 06:37 06:37 WBC RBC Hgb Hct MCV MCH MCHC RDW Plt Count Seg Neutrophils % Lymphocytes % Monocytes % Eosinophils % Basophils % Absolute Neutrophils Absolute Lymphocytes Absolute Monocytes Absolute Eosinophils Absolute Basophils VBG pH VBG pCO2 VBG HCO3 VBG Base Excess Sodium 136.9 L Potassium 3.6 D Chloride 103 Carbon Dioxide 26 Anion Gap 8 BUN 22 H Creatinine 0.94 Est GFR ( Amer) > 60 Est GFR (Non-Af Amer) > 60 Glucose 102 Lactic Acid Calcium 8.7 Magnesium 1.8 Total Bilirubin AST ALT Alkaline Phosphatase Total Protein Albumin Triglycerides 107 Cholesterol 113.70 LDL Cholesterol Direct 42 VLDL Cholesterol 21.0 HDL Cholesterol 48 TSH 0.07 L Free T4 1.33 Free T3 pg/mL 3.25 Urine Color Urine Appearance Urine pH Ur Specific [place] Urine Protein Urine Glucose (UA) Urine Ketones Urine Blood Urine Nitrite Ur Leukocyte Esterase Urine WBC (Auto) Urine RBC (Auto) Impressions: Chest X-Ray 10/03/18 21:14 IMPRESSION: Underlying hyperinflation. Lungs are clear copyright 2011 [employer]- All Rights Reserved Assessment and Plan - Diagnosis (1) Complicated UTI (urinary tract infection) Is this a current diagnosis for this admission?: Yes Plan: Gram-negative rods grew in urine culture. Meropenem was switched to ceftriaxone. I will adjust his antibiotics based on the urine culture results. (2) A-fib Qualifiers: Atrial fibrillation type: chronic Qualified Code(s): I48.2 - Chronic atrial fibrillation Is this a current diagnosis for this admission?: Yes Plan: Rate controlled. We will resume his Coumadin. (3) Hypothyroidism Is this a current diagnosis for this admission?: Yes Plan: Continue Synthroid (4) Hypertension Is this a current diagnosis for this admission?: Yes Plan: Continue home medication (5) Hyperlipidemia Is this a current diagnosis for this admission?: Yes Plan: Continue home medication
[2018-10-04] MEDS ORDERED: CEFTRIAXONE 2 GM/D5W RTU 2 GM/50 ML RTUPB IV SCH (18:00)
[2018-10-04] MEDS ORDERED: CEFTRIAXONE 1 GM/D5W RTU 1 GM/50 ML RTUPB IV SCH (22:00)
[2018-10-05] MEDS ORDERED: LEVOTHYROXINE SODIUM 0.1 MG TABLET PO SCH (06:00)
[2018-10-05] MEDS: PANTOPRAZOLE SODIUM 40 MG TABLET.DR PO SCH (06:34)
[2018-10-05] MEDS ORDERED: ONDANSETRON HCL INJ/PF 4 MG/2 ML SDV IV PRN (07:30)
[2018-10-05 09:31] VITALS: BP 148/87
[2018-10-05 09:51] LABS: HEMATOCRIT 40.2 % (37.9-51.0); HEMOGLOBIN 13.4 g/dL (13.5-17.0); MEAN CORPUSCULAR HEMOGLOBIN 31.8 pg (27.0-33.4); MEAN CORPUSCULAR HGB CONC 33.4 g/dL (32.0-36.0); MEAN CORPUSCULAR VOLUME 95 fl (80-97); PLATELET COUNT 117 10^3/uL (150-450); RED BLOOD COUNT 4.22 10^6/uL (4.35-5.55); RED CELL DISTRIBUTION WIDTH 14.4 % (11.5-14.0); WHITE BLOOD COUNT 5.8 10^3/uL (4.0-10.5)
--- NOTE | 2018-10-05 09:53 | PDOC DISCHARGE SUMMARY ---
General - Admit/Disc Date/PCP Admission Date/Primary Care Provider: 10/03/18 23:06 Discharge Date: 10/05/18 - Discharge Diagnosis (1) Complicated UTI (urinary tract infection) Is this a current diagnosis for this admission?: Yes (2) A-fib Is this a current diagnosis for this admission?: Yes (3) Hypothyroidism Is this a current diagnosis for this admission?: Yes (4) Hypertension Is this a current diagnosis for this admission?: Yes (5) Hyperlipidemia Is this a current diagnosis for this admission?: Yes - Additional Information Resuscitation Status: Full Code Home Medications: Amlodipine Besylate [Norvasc 5 mg Tablet] 5 mg PO DAILY 10/04/18 Donepezil HCl [Aricept] 10 mg PO QHS 10/04/18 Famotidine [Pepcid 20 mg Tablet] 20 mg PO DAILY 10/04/18 Levothyroxine Sodium [Synthroid 0.1 mg Tablet] 0.1 mg PO Q6AM 10/04/18 Lisinopril [Prinivil 10 mg Tablet] 40 mg PO DAILY 10/04/18 Meloxicam [Mobic] 7.5 mg PO Q12HP PRN 10/04/18 Metoprolol Tartrate [Lopressor 25 mg Tablet] 12.5 mg PO Q12 10/04/18 Potassium Chloride [Klor-Con 10 Meq Capsule ER] 20 meq PO DAILY MDD sprinkled of apple sauce 10/04/18 Simvastatin [Zocor 10 mg Tablet] 40 mg PO QHS 10/04/18 Tamsulosin HCl [Flomax 0.4 mg Cap.sr] 0.4 mg PO DAILY 10/04/18 Warfarin Sodium [Coumadin 3 mg Tablet] 3 mg PO QHS 10/04/18 History of Present Illness History of Present Illness: GABY MUJICA is a 82 year old male who presented to the emergency room via EMS with acute febrile symptoms. He and his family admit that he suddenly developed a subjective fever with severe shaking chills and severe generalized muscle weakness this evening just prior to coming to the hospital. He was seated at home and developed his severe chilling, when he tried to get up and was unable to stand on his own. He was eventually assisted to the bathroom where he passed some blood tinged urine. He denies any additional associated or accompanying signs and symptoms. He admits prior similar episodes with urinary tract infections related to his enlarged prostate. He has not identified any aggravating or ameliorating factors for his acute fever. Patient was given acetaminophen by EMS and brought to the emergency room where his initial temperature was 102.7 F. He was found to have a normal white blood count however his urine showed evidence of significant pyuria with positive nitrite. Patient was subsequently admitted to hospital for further evaluation and treatment. Hospital Course Hospital Course: This is 82 years old male patient with past medical history of atrial fibrillation on Coumadin for anticoagulation, hyperlipidemia, hypertension, hypothyroidism presented with chief complaint of shaking chills fever and dysuria. Patient was given acetaminophen by EMS and brought to the emergency room where his initial temperature was 102.7. His urine analysis is compatible with UTI. His urine culture is positive for gram-negative rods. Patient has been started on meropenem by the attending physician tax consultant. I switched to meropenem to ceftriaxone. 10/05/2018: Patient seen resting in bed comfortably. He is not in pain or distress. His vital signs are within normal limits. His urine culture is posi tive for E. coli which is pansensitive. I will continue all his home medication and I will send him with Cipro 500 mg twice daily for 5 days. Patient needs follow-up with his primary care physician in 1 week. Physical Exam Vital Signs: Temp Pulse Resp BP Pulse Ox 98.1 F 98 18 148/87 H 97 10/05/18 09:15 10/05/18 09:15 10/05/18 09:15 10/05/18 09:15 10/05/18 09:15 Intake & Output 10/04/18 10/05/18 10/06/18 06:59 06:59 06:59 Intake Total 50 3982 Output Total 450 1800 Balance -400 2182 Weight 70.2 kg 70.2 kg 70.2 kg General appearance: PRESENT: no acute distress Head exam: PRESENT: atraumatic Eye exam: PRESENT: conjunctiva pink Neck exam: ABSENT: carotid bruit, JVD, lymphadenopathy, thyromegaly Respiratory exam: PRESENT: clear to auscultation darvin. ABSENT: rales, rhonchi, wheezes Cardiovascular exam: PRESENT: irregular rhythm Neurological exam: PRESENT: alert, awake, oriented to person, oriented to place, oriented to time, oriented to situation Results Laboratory Results: 10/04/18 06:37 07/10/19 06:37 10/03/18 21:21 Clean Catch Midstream Urine Culture - Final Escherichia Coli Impressions: Chest X-Ray 10/03/18 21:14 IMPRESSION: Underlying hyperinflation. Lungs are clear copyright 2011 [employer]- All Rights Reserved Qualifiers - * PATIENT BEING DISCHARGED WITH ANY OF THE FOLLOWING DIAGNOSIS: No Acute Heart Failure - Is this a Heart Failure Patient?: No LVEF < 40%?: No- if no continue to question #3 3. Anticoagulant therapy for permanect/persistent/paraoxysmal Afib or Aflutter: N/A
[2018-10-05 10:00] LABS: INTERNATIONAL RATION (INR) 1.49; PROTHROMBIN TIME 18.1 SEC (11.4-15.4)
[2018-10-05] MEDS ORDERED: TAMSULOSIN HCL 0.4 MG CAP.SR.24H PO SCH (10:00)
[2018-10-05] MEDS ORDERED: POTASSIUM CHLORIDE 10 MEQ CAPSULE.ER PO SCH (10:00)
[2018-10-05] MEDS ORDERED: LISINOPRIL 10 MG TABLET PO SCH (10:00)
[2018-10-05] MEDS ORDERED: METOPROLOL TARTRATE 25 MG TABLET PO SCH (10:00)
[2018-10-05] MEDS ORDERED: AMLODIPINE BESYLATE 5 MG TABLET PO SCH (10:00)
[2018-10-05] MEDS ORDERED: FAMOTIDINE 20 MG TABLET PO SCH (10:00)
[2018-10-05 10:15] LABS: ANION GAP 7 (5-19); BLOOD UREA NITROGEN 17 mg/dL (7-20); CALCIUM 8.6 mg/dL (8.4-10.2); CARBON DIOXIDE 27 mmol/L (22-30); CHLORIDE 103 mmol/L (98-107); GLUCOSE 170 mg/dL (75-110); POTASSIUM 4.3 mmol/L (3.6-5.0); SODIUM 136.7 mmol/L (137-145)
[2018-10-05] MEDS: DOCUSATE SODIUM 100 MG CAPSULE PO SCH (11:18)
[2018-10-05] MEDS: NEOMY SULF/POLYMYX B SULF/HC OTIC SUSP 10 ML AS SCH (11:22)
[2018-10-05] MEDS ORDERED: (PENDING PHARMACY ID) (Warfarin Sodium 3 MG) PO SCH (22:00)
[2018-10-05] MEDS ORDERED: WARFARIN SODIUM 3 MG TABLET PO SCH (22:00)
[2018-10-05] MEDS ORDERED: SIMVASTATIN 10 MG TABLET PO SCH (22:00)
== END 2018-10-05 12:25 | disposition home or self-care (01) | DRG 690 ==
LOC: ER 20:18 → EH 23:06 → 4S 10-04 01:08
PROVIDERS: ADMIT Emergency Medicine; ATTEND Emergency Medicine
DX: N39.0 Urinary tract infection, site not specified (principal); I10 Essential (primary) hypertension; B96.20 Unspecified Escherichia coli [E. coli] as the cause of diseases classified elsewhere; E78.5 Hyperlipidemia, unspecified; I48.91 Unspecified atrial fibrillation; K21.9 Gastro-esophageal reflux disease without esophagitis; M46.92 Unspecified inflammatory spondylopathy, cervical region; N40.1 Benign prostatic hyperplasia with lower urinary tract symptoms; E03.9 Hypothyroidism, unspecified; Z88.1 Allergy status to other antibiotic agents; Z79.899 Other long term (current) drug therapy; Z79.01 Long term (current) use of anticoagulants
CPT/HCPCS: 36415; 71045; 80048; 80053; 80061; 81001; 82803; 83605; 83735; 84439; 84443; 84481; 85025; 85027; 85610; 87040; 87086; 87088; 87186; 93005; 93010; J0696; J2185; J3490; J7120